=== PATIENT | female | born 1950 | race Caucasian/White ===

== ENCOUNTER → 2024-10-19 | Outpatient (REF) | payer MEDICARE, MEDICAID, SELFPAY ==
[2024-10-19 08:15] LABS: Absolute Lymphocyte Count 1.54 X10^3/uL (0.83-4.51); Absolute Neutrophil Count 3.2 X10^3/uL (2.0-7.7); Basophil# 0.05 X10^3/uL; Basophil% 0.9 % (0-1); Eosinophil# 0.11 X10^3/uL; Hematocrit 39.9 % (37-47); Hemoglobin 12.7 g/dL (12.0-15.0); Lymphocyte # 1.54 X10^3/ul (0.83-4.51); Lymphocyte % 28.4 % (19-41); Mean Corp Hgb Conc 31.8 g/dL (32-36); Mean Corpuscular Hgb 30.2 pg (27.0-32.0); Mean Platelet Vol. 11.7 fl (6.2-12.0); Monocyte# 0.51 X10^3/uL; Monocyte% 9.4 % (0-10); NRBC Flagged by Analyzer 0 % (0-5); Neutrophil % 59.1 % (47-70); Platelet Count 211 K/mm3 (150-450); RBC Distribution Width CV 13.7 % (11.6-14.6); RBC Distribution Width SD 48.3 fl (35.1-43.9); White Blood Count 5.4 K/mm3 (4.4-11.0)
[2024-10-19 08:28] LABS: Hemoglobin A1c 5.6 % (<=5.6)
[2024-10-19 08:54] LABS: Vitamin B12 313 pg/mL (180-914); Vitamin D,25 Hydroxy 30.3 ng/mL (30-100)
[2024-10-19 09:06] LABS: ALB/GLOB Ratio 1.4 RATIO (0.9-2.4); AST(SGOT) 17 U/L (<=31); Alanine Aminotransfer ALT/SGPT < 5 U/L (<=34); Albumin, Serum 4.2 g/dL (3.4-4.8); Alkaline Phosphatase 68 U/L (35-104); Anion Gap 10 (5-15); BUN 18 mg/dL (4-19); BUN/Creat Ratio 19.6 RATIO (10-20); Calcium,Total 9.1 mg/dL (7.6-11.0); Carbon Dioxide 26.2 mmol/L (21.0-32.0); Chloride 105 mmol/L (98-108); Creatinine, Serum 0.91 mg/dL (0.70-1.20); EST Glomerular Filtration Rate 66 (>60); Globulin 2.9 g/dL (2.2-4.2); Glucose 85 mg/dL (70-99); Potassium 4.4 mmol/L (3.3-5.1); Sodium Level 141 mmol/L (133-145); Total Bilirubin 0.35 mg/dL (0.00-1.30)
== END ==
LOC: OLS.SW 05:00
PROVIDERS: Visit Provider Internal Medicine
DX: E55.9 Vitamin D deficiency, unspecified (principal); G20.C Parkinsonism, unspecified; Z79.899 Other long term (current) drug therapy
CPT/HCPCS: 36415; 80053; 82306; 82607; 83036; 84443; 85025

== ENCOUNTER → 2024-11-08 | Outpatient (REF) | payer MEDICARE, MEDICAID, SELFPAY ==
--- OUTSIDE RECORDS SUMMARY | 2024-11-08 04:50 | XMS RPT_ITS | CCD ---
Author Organization 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 Phillips Attending Provider Saada Jacqueline Daugherty Attending Unavailable Problems Problem Classification Problem Date Documented Da te Episodic/Chronic Nutritional deficiencies (1 source) Vitamin D deficiency, unspecified; Translations: [Vitamin D deficiency, unspecified] Onset: 11-05-2024 Chronic Unclassified (1 source) Parkinsonism, unspecified; Translations: [Parkinsonism, unspecified] Onset: 11-05-2024 Results Test Name Value Interpretation Reference Range Facility Absolute lymphocyte countOrd ered By: Jacqueline Walsh on 10-19-2024 Lymphocytes Auto (Unsp spec) [#/Vol] 1.54 10*3/uL 0.83-4.51 [facility] Absolute neutrophil countOrd ered By: Jacqueline Walsh on 10-19-2024 Neutrophils (Bld) [#/Vol] 3.2 10*3/uL 2.0-7.7 [facility] Anion gap in Serum or Plasma Ordered By: Jacqueline Walsh on 10-19-2024 Anion gap [Moles/Vol] 10 mmol/L 5-15 [facility] Automated blood erythrocyte countOrdered By: Jacqueline Walsh on 10-19-2024 RBC (Bld) [#/Vol] 4.20 10*6/uL Normal 4.2-5.4 [facility] Comment on above: Order Comment: 308-2 Performed By: #### L 503.0106, L501.9520, L501.9985, L500.4050, L100.0100, L506.1001 #### [facility] [address] [place], [address] Automated blood hematocrit ( percentage)Ordered By: Jacqueline Walsh on 10-19-2024 Hematocrit (Bld) [Volume fraction] 39.9 % Normal 37-47 [facility] Comment on above: Order Comment: 308-2 Performed By: #### L 503.0106, L501.9520, L501.9985, L500.4050, L100.0100, L506.1001 #### [facility] [address] [place], [place], [id number] Automated lymphocyte count a s percentage of total leukocytesOrdered By: Jacqueline Walsh on 10-19-2024 Lymphocytes/100 WBC Auto (Unsp spec) 28.4 % 19- [facility] BUN/creatinine ratioOrdered By: Jacqueline Walsh on 10-19-2024 Urea nitrogen/Creatinine [Mass ratio] 19.6 mg/mg 10-20 [facility] Basophil percentageOrdered B y: Jacqueline Walsh on 10-19-2024 Basophils/100 WBC (Bld) 0.9 % Normal 0-1 [facility] Comment on above: Order Comment: 308-2 Performed By: #### L 503.0106, L501.9520, L501.9985, L500.4050, L100.0100, L506.1001 #### [facility] [address] [place], [place], [address] Bilirubin, totalOrdered By: Jacqueline Walsh on 10-19-2024 Bilirubin [Mass/Vol] 0.35 mg/dL Normal 0.00-1.30 [facility] Comment on above: Order Comment: 308-2 Performed By: #### L 503.0106, L501.9520, L501.9985, L500.4050, L100.0100, L506.1001 #### [facility] [address] [place], [place], [address] CBC W/Diff, Automatedon 09-24 Absolute Lymph 1.54 X10 3/uL Normal 0.83-4.51 [facility] Comment on above: Order Comment: 308-2 Performed By: #### L 503.0106, L501.9520, L501.9985, L500.4050, L100.0100, L506.1001 #### [facility] [address] [place], [address] Absolute Neut 3.2 X10 3/uL Normal 2.0-7.7 [facility] Comment on above: Order Comment: 308-2 Performed By: #### L 503.0106, L501.9520, L501.9985, L500.4050, L100.0100, L506.1001 #### [facility] [address] [place], [address] IG% 0.200 Normal 0.0-0.9 [facility] Comment on above: Order Comment: 308-2 Result Comment: IG% - Immature Granulocytes (promyelocytes, myelocytes and metamyelocytes) > 1% indicates that a LEFT SHIFT is Present. Performed By: #### L 503.0106, L501.9520, L501.9985, L500.4050, L100.0100, L506.1001 #### [facility] [address] [place], [address] Lymphocytes/100 WBC (Bld) 28.4 % Normal 19-41 [facility] Comment on above: Order Comment: 308-2 Performed By: #### L 503.0106, L501.9520, L501.9985, L500.4050, L100.0100, L506.1001 #### [facility] [address] [place], [address] Nucleated RBC (Bld) [#/Vol] 0 10*3/uL Normal 0-5 [facility] Comment on above: Order Comment: 308-2 Performed By: #### L 503.0106, L501.9520, L501.9985, L500.4050, L100.0100, L506.1001 #### [facility] [address] [place], [address] RDW SD 48.3 fl High 35.1-43.9 [facility] Comment on above: Order Comment: 308-2 Performed By: #### L 503.0106, L501.9520, L501.9985, L500.4050, L100.0100, L506.1001 #### [facility] [address] [place], [address] Carbon dioxide, total [Moles /volume] in Central venous bloodOrdered By: Jacqueline Walsh on 10-19-2024 CO2 [Moles/Vol] 26.2 mmol/L Normal 21.0-32.0 [facility] Comment on above: Order Comment: 308-2 Performed By: #### L 503.0106, L501.9520, L501.9985, L500.4050, L100.0100, L506.1001 #### [facility] [address] [place], [address] Chloride assayOrdered By: Warner Walsh on 10-19-2024 Chloride [Moles/Vol] 105 mmol/L Normal 98-108 [facility] Comment on above: Order Comment: 308-2 Performed By: #### L 503.0106, L501.9520, L501.9985, L500.4050, L100.0100, L506.1001 #### [facility] [address] [place], [address] Comprehensive Metabolic Prof ilon 10-19-2024 ALK PHOS 68 U/L Normal 35-104 [facility] Comment on above: Order Comment: 308-2 Performed By: #### L 503.0106, L501.9520, L501.9985, L500.4050, L100.0100, L506.1001 #### [facility] [address] [place], [address] BUN/CRE 19.6 RATIO Normal 10-20 [facility] Comment on above: Order Comment: 308-2 Performed By: #### L 503.0106, L501.9520, L501.9985, L500.4050, L100.0100, L506.1001 #### [facility] [address] [place], [address] GAP 10 Normal 5-15 [facility] Comment on above: Order Comment: 308-2 Performed By: #### L 503.0106, L501.9520, L501.9985, L500.4050, L100.0100, L506.1001 #### [facility] [address] [place], [address] Potassium [Moles/Vol] 4.4 mmol/L Normal 3.3-5.1 [facility] Comment on above: Order Comment: 308-2 Performed By: #### L 503.0106, L501.9520, L501.9985, L500.4050, L100.0100, L506.1001 #### [facility] [address] [place], [address] T PROT 7.0 g/dL Normal 5.9-8.4 [facility] Comment on above: Order Comment: 308-2 Performed By: #### L 503.0106, L501.9520, L501.9985, L500.4050, L100.0100, L506.1001 #### [facility] [address] [place], [address] Comprehensive Metabolic Prof ilOrdered By: Jacqueline Walsh on 10-19-2024 AST [Catalytic activity/Vol] 17 U/L Normal <=31 [facility] Comment on above: Order Comment: 308-2 Performed By: #### L 503.0106, L501.9520, L501.9985, L500.4050, L100.0100, L506.1001 #### [facility] [address] [place], [place], [address] Eosinophil percentageOrdered By: Jacqueline Walsh on 10-19-2024 Eosinophils/100 WBC (Bld) 2.0 % Normal 0-5 [facility] Comment on above: Order Comment: Performed By: #### L 503.0106, L501.9520, L501.9985, L500.4050, L100.0100, L506.1001 #### [facility] [address] [place], [address] Erythrocyte distribution wid th ratioOrdered By: Jacqueline Walsh on 10-19-2024 Erythrocyte distribution width (RBC) [Ratio] 13.7 % Normal 11.6-14.6 [facility] Comment on above: Order Comment: Performed By: #### L 503.0106, L501.9520, L501.9985, L500.4050, L100.0100, L506.1001 #### [facility] [address] [place], [place], [address] Erythrocyte distribution wid th standard deviationOrdered By: Jacqueline Walsh on 10-19-2024 Erythrocyte distribution width (RBC) [Ratio] 48.3 fl High 35.1-43.9 [facility] Glomerular filtration rate ( GFR) estimation/1.73 sq m using serum, plasma, or whole bOrdered By: Jacqueline Walsh on 10-19-2024 GFR/1.73 sq M.predicted among non-blacks MDRD (S/P/Bld) [Vol rate/Area] 66 mL/min/{1.73_m2} Normal >60 [facility] Comment on above: mL/min/1.73m2 CKD-EP I Creatinine Equation (2020) Order Comment: Result Comment: mL/m in/1.73m2 CKD-EPI Creatinine Equation (2020) Performed By: #### L 503.0106, L501.9520, L501.9985, L500.4050, L100.0100, L506.1001 #### [facility] [address] [place], [place], [address] Hemoglobin A1c percentageOrd ered By: Jacqueline Walsh on 10-19-2024 HbA1c (Bld) [Mass fraction] 5.6 % Normal <=5.6 [facility] Comment on above: Normal < 5.7 % Predi abetic 5.7 - 6.4 % Diabetic >or= 6.5 % Please note range changes. Order Comment: 308-2 Result Comment: Norm al < 5.7 % Prediabetic 5.7 - 6.4 % Diabetic >or= 6.5 % Please note range changes. Performed By: #### L 503.0106, L501.9520, L501.9985, L500.4050, L100.0100, L506.1001 #### [facility] [address] [place], [address] Hemoglobin measurementOrdere d By: Jacqueline Walsh on 10-19-2024 Hemoglobin (Bld) [Mass/Vol] 12.7 g/dL Normal 12.0-15.0 [facility] Comment on above: Order Comment: 308-2 Performed By: #### L 503.0106, L501.9520, L501.9985, L500.4050, L100.0100, L506.1001 #### [facility] [address] [place], [address] Immature granulocytes/100 WB C Auto (Bld)Ordered By: Jacqueline Walsh on 10-19-2024 Immature granulocytes/100 WBC (Bld) 0.200 % 0.0-0.9 [facility] Comment on above: IG% - Immature Granu locytes (promyelocytes, myelocytes and metamyelocytes) > 1% indicates that a LEFT SHIFT is Present. MCV (mean corpuscular volume ) determinationOrdered By: Jacqueline Walsh on 10-19-2024 MCV (RBC) [Entitic vol] 95.0 fL Normal 81-99 [facility] Comment on above: Order Comment: 308-2 Performed By: #### L 503.0106, L501.9520, L501.9985, L500.4050, L100.0100, L506.1001 #### [facility] [address] [place], [place], [address] Mean corpuscular hemoglobin (MCH) determinationOrdered By: Jacqueline Walsh on 10-19-2024 MCH (RBC) [Entitic mass] 30.2 pg Normal 27.0-32.0 [facility] Comment on above: Order Comment: 308-2 Performed By: #### L 503.0106, L501.9520, L501.9985, L500.4050, L100.0100, L506.1001 #### [facility] [address] [place], [place], [address] Mean corpuscular hemoglobin concentration (MCHC) determinationOrdered By: Jacqueline Walsh on 10-19-2024 MCHC (RBC) [Mass/Vol] 31.8 g/dL Low 32-36 [facility] Comment on above: Order Comment: 308-2 Performed By: #### L 503.0106, L501.9520, L501.9985, L500.4050, L100.0100, L506.1001 #### [facility] [address] [place], [place], [address] Mean platelet volume determi nationOrdered By: Jacqueline Walsh on 10-19-2024 Platelet mean volume (Bld) [Entitic vol] 11.7 fL Normal 6.2-12.0 [facility] Comment on above: Order Comment: 308-2 Performed By: #### L 503.0106, L501.9520, L501.9985, L500.4050, L100.0100, L506.1001 #### [facility] [address] [place], [place], [address] Monocyte percentageOrdered B y: Jacqueline Walsh on 10-19-2024 Monocytes/100 WBC (Bld) 9.4 % Normal 0-10 [facility] Comment on above: Order Comment: 308-2 Performed By: #### L 503.0106, L501.9520, L501.9985, L500.4050, L100.0100, L506.1001 #### [facility] [address] [place], [address] Neutrophil percentageOrdered By: Jacqueline Walsh on 10-19-2024 Neutrophils/100 WBC (Bld) 59.1 % Normal 47-70 [facility] Comment on above: Order Comment: 308-2 Performed By: #### L 503.0106, L501.9520, L501.9985, L500.4050, L100.0100, L506.1001 #### [facility] [address] [place], [address] Nucleated red blood cell per centageOrdered By: Jacqueline Walsh on 10-19-2024 Nucleated RBC/100 WBC (Bld) [Ratio] 0 % 0-5 [facility] Platelet countOrdered By: Warner Walsh on 10-19-2024 Platelets (Bld) [#/Vol] 211 10*3/uL Normal 150-450 [facility] Comment on above: Order Comment: 308-2 Performed By: #### L 503.0106, L501.9520, L501.9985, L500.4050, L100.0100, L506.1001 #### [facility] [address] [place], [place], [address] Potassium measurement (mass/ volume)Ordered By: Jacqueline Walsh on 10-19-2024 Potassium (Unsp spec) [Mass/Vol] 4.4 mmol/L 3.3-5.1 [facility] Serum creatinine measurement (mass/volume)Ordered By: Jacqueline Walsh on 10-19-2024 Creatinine [Mass/Vol] 0.91 mg/dL Normal 0.70-1.20 [facility] Comment on above: Order Comment: 308-2 Performed By: #### L 503.0106, L501.9520, L501.9985, L500.4050, L100.0100, L506.1001 #### [facility] [address] [place], [address] Serum globulin measurementOr dered By: Jacqueline Walsh on 10-19-2024 Globulin (S) [Mass/Vol] 2.9 g/dL Normal 2.2-4.2 [facility] Comment on above: Order Comment: 308-2 Performed By: #### L 503.0106, L501.9520, L501.9985, L500.4050, L100.0100, L506.1001 #### [facility] [address] [place], [address] Serum glucose measurement (m ass/volume)Ordered By: Jacqueline Walsh on 10-19-2024 Glucose [Mass/Vol] 85 mg/dL Normal 70-99 [facility] Comment on above: Order Comment: 308-2 Performed By: #### L 503.0106, L501.9520, L501.9985, L500.4050, L100.0100, L506.1001 #### [facility] [address] [place], [address] Serum or plasma alanine hall otransferase (ALT) measurementOrdered By: Jacqueline Walsh on 10-19-2024 ALT [Catalytic activity/Vol] U/L Normal <=34 [facility] Comment on above: Order Comment: 308-2 Performed By: #### L 503.0106, L501.9520, L501.9985, L500.4050, L100.0100, L506.1001 #### [facility] [address] [place], [address] Serum or plasma albumin rex urement (mass/volume)Ordered By: Jacqueline Walsh on 10-19-2024 Albumin [Mass/Vol] 4.2 g/dL Normal 3.4-4.8 [facility] Comment on above: Order Comment: 308-2 Performed By: #### L 503.0106, L501.9520, L501.9985, L500.4050, L100.0100, L506.1001 #### [facility] [address] [place], [address] Serum or plasma albumin/glob ulin mass ratioOrdered By: Jacqueline Walsh on 10-19-2024 Albumin/Globulin [Mass ratio] 1.4 {ratio} Normal 0.9-2.4 [facility] Comment on above: Order Comment: 308-2 Performed By: #### L 503.0106, L501.9520, L501.9985, L500.4050, L100.0100, L506.1001 #### [facility] [address] [place], [address] Serum or plasma alkaline carisa sphatase measurementOrdered By: Jacqueline Walsh on 10-19-2024 ALP [Catalytic activity/Vol] 68 U/L 35-104 [facility] Serum or plasma calcium rex urement (mass/volume)Ordered By: Jacqueline Walsh on 10-19-2024 Calcium [Mass/Vol] 9.1 mg/dL Normal 7.6-11.0 [facility] Comment on above: Order Comment: 308-2 Performed By: #### L 503.0106, L501.9520, L501.9985, L500.4050, L100.0100, L506.1001 #### [facility] [address] [place], [address] Serum or plasma urea nitroge n measurement (mass/volume)Ordered By: Jacqueline Walsh on 10-19-2024 Urea nitrogen [Mass/Vol] 18 mg/dL Normal 4-19 [facility] Comment on above: Order Comment: 308-2 Performed By: #### L 503.0106, L501.9520, L501.9985, L500.4050, L100.0100, L506.1001 #### [facility] [address] [place], [place], [id number] Sodium levelOrdered By: Esperanza Walsh on 10-19-2024 Sodium [Moles/Vol] 141 mmol/L Normal 133-145 [facility] Comment on above: Order Comment: 308-2 Performed By: #### L 503.0106, L501.9520, L501.9985, L500.4050, L100.0100, L506.1001 #### [facility] [address] [place], [place], [id number] TSH DL <= 0.005 mIU/L QnOrde red By: Jacqueline Walsh on 10-19-2024 TSH Qn 2.790 uIU/mL 0.300-4.200 [facility] Thyroid Stim Hormone (TSH)on 10-19-2024 TSH 2.790 uIU/mL Normal 0.300-4.200 [facility] Comment on above: Order Comment: 308-2 Performed By: #### L 503.0106, L501.9520, L501.9985, L500.4050, L100.0100, L506.1001 #### [facility] [address] [place], [place], [id number] Total proteinOrdered By: Herber Walsh on 10-19-2024 Protein [Mass/Vol] 7.0 g/dL 5.9-8.4 [facility] Vitamin B12 ser/plasOrdered By: Jacqueline Walsh on 10-19-2024 Cobalamin (Vitamin B12) [Mass/Vol] 313 pg/mL Normal 180-914 [facility] Comment on above: Order Comment: 308-2 Performed By: #### L 503.0106, L501.9520, L501.9985, L500.4050, L100.0100, L506.1001 #### [facility] [address] [place], [place], [address] Vitamin D,25 Hydroxyon 10-19 Vitamin D 25-OH 30.3 ng/mL Normal 30-100 [facility] Comment on above: Order Comment: 308-2 Result Comment: Margy min D Status Deficiency: <20 ng/mL (50nmol/L) Insufficiency: 20-30 ng/mL (50-75 nmol/L) Sufficiency: 30-100 ng/mL (75-250 nmol/L) Toxicity: >100 ng/mL (>250 nmol/L) Performed By: #### L 503.0106, L501.9520, L501.9985, L500.4050, L100.0100, L506.1001 #### [facility] [address] [place], [place], [id number] White blood cell (WBC) count Ordered By: Jacqueline Walsh on 10-19-2024 WBC (Bld) [#/Vol] 5.4 10*3/uL Normal 4.4-11.0 [facility] Comment on above: Order Comment: 308-2 Performed By: #### L 503.0106, L501.9520, L501.9985, L500.4050, L100.0100, L506.1001 #### [facility] [address] [place], [place], [id number] MRI Spine Lumbar w/o Contras ton 12-07-2018 MRI Spine Lumbar w/o Contrast Patient Name: DANAY GARCIA MRI Exam Date/Time 12/07/2018 08:16:25 EDT Exam MRI Spine Lumbar w/o Contrast Ordering Physician MAE DICKINSON Accession Number [id number] CPT4 Codes 31509 () Reason For Exam lumbar stenosis Report MRI LUMBAR SPINE CLINICAL: Lumbar stenosis COMPARISON: None provided Sagittal and axial multisequence MR imaging of the lumbar spine was performed. FINDINGS: There is no abnormal marrow edema to suggest acute lumbar osseous injury. The lumbar spine vertebral body heights are maintained. Mild endplate degenerative spurring and endplate degenerative marrow signal changes are present. Multilevel facet degenerative changes. There is mild anterolisthesis of L5 upon S1 of approximately 4 mm. Multilevel disc bulging changes are present and there is multilevel disc space desiccation. The conus terminates at the L1-L2 level. 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 T12-L1 shows mild disc bulging and facet degenerative changes. No significant canal or foraminal stenosis.. L1-L2 with mild posterior disc bulging and facet degenerative changes. No significant canal or foraminal stenosis. L2-L3 shows disc bulging and facet and ligamentous degenerative change. There is moderate canal narrowing. The foramina show mild narrowing. L3-L4 shows diffuse disc bulging and facet and ligamentous degenerative change. There is moderately severe narrowing of the canal. The foramina show moderate left and mild right narrowing L4-L5 shows severe canal stenosis due to diffuse disc bulging and facet and ligamentous degenerative change. The foramina show mild right and moderate left narrowing. L5-S1 shows the mild anterolisthesis, disc bulging and facet and ligamentous degenerative changes. No significant central canal stenosis. The foramina are mildly narrowed. IMPRESSION: Mild multilevel lumbar spondylosis. There is severe canal stenosis present at the L4-L5 level. Moderate foraminal narrowing on the left at L3-L4 and L4-L5. Please see the above level by level detailed description of findings. Report Dictated on Final Dictated: 12/07/2018 8:50 am Dictating Physician: MD OMALLEY BRIAN Signed Date and Time: 12/07/2018 9:05 am Signed by: MD OMALLEY BRIAN Transcribed Date and Time: 12/07/2018 8:50 Normal [facility] Encounters Encounter Date Encounter Type Care Provider Facility Start: 10-19-2024 End: 10-19-[address] Jacqueline Walsh MD [facility] [employer] Work Phone: Start: 10-19-2024 End: 10-19-[address] Jacqueline Walsh MD -[facility] Start: 10-19-2024 End: 10-19-2024 ambulatory Jacqueline PEOPLES Facility:[facility] Procedures Date Procedure Procedure Detail Performing Clinician Start: 10-19-2024 Vitamin D, 25-hydrox y measurement Dr. Jacqueline Waslh MD Comment on above: Vitamin D StatusDefi ciency: <20 ng/mL (50nmol/L)Insufficiency: 20-30 ng/mL (50-75 nmol/L)Sufficiency: 30-100 ng/mL (75-250 nmol/L)Toxicity: >100 ng/mL (>250 nmol/L) Payers Date Payer Category Payer Medicaid [id number] 2024 Medicare [id number] 2024 Self-pay Unknown [id number] Social History Date Type Detail Facility Tobacco smoking stat [facility] Unknown if ever smoked [facility] Work Phone: Start: 1950 Sex Assigned At Female [facility] Evaluation note Note Date & Type Note Facility Evaluation note No assessment information availa ble [facility] Work Phone: Reason for referral (narrative) Note Date & Type Note Facility Reason for referral (narrative) No reason for referral information available [facility] Work Phone: Summary Purpose Family History No Family History Records FoundNo Family History Records Found Advance Directives No Advanced Directives Records FoundNo Advanced Directives Records Found Chief Complaint and Reason for Visit Chief Complaint Admit Date LABWORK October 19, 2024 5:00a m Additional Source Comments INFORMATION SOURCE (unrecogn ized section and content) DATE CREATED AUTHOR 12/15/2018 [facility] DATE CREATED AUTHOR AUTHOR'S ORGANIZ ATION 11/08/2024 [facility] Care Teams (unrecognized sec tion and content) Team Status: Inactive Member Role Status Dates Dr. Jacqueline PEOPLES MD Attending Provider Active Start: October 19, 2024 End: October 19, 2024 Goals (unrecognized section and content) Goals may be documented in a n alternate section FOR RECORDS PERTAINING TO PATIENTS WHO ARE OR HAVE BEEN ENROLLED IN A CHEMICAL DEPENDENCY/SUBSTANCEABUSE PROGRAM, SOME INFORMATION MAY BE OMITTED. This clinical summary was aggregated from multiple sources. Caution should be exercised in using it in the provision of clinical care. This summary normalizes information from multiple sources, and as a consequence, information in this document may materially change the coding, format and clinical context of patient data. In addition, data may be omitted in some cases. CLINICAL DECISIONS SHOULD BE BASED ON THE PRIMARY CLINICAL RECORDS. [facility]. provides no warranty or guarantee of the accuracy or completeness of information in this document.
[2024-11-08 09:32] LABS: Absolute Neutrophil Count 3.3 X10^3/uL (2.0-7.7); Basophil# 0.03 X10^3/uL; Basophil% 0.6 % (0-1); Eosinophil# 0.13 X10^3/uL; Eosinophils% 2.4 % (0-5); Hematocrit 40.2 % (37-47); Lymphocyte % 26.4 % (19-41); Mean Corp Hgb Conc 32.3 g/dL (32-36); Mean Corpuscular Hgb 30.4 pg (27.0-32.0); Mean Corpuscular Volume 93.9 fL (81-99); Mean Platelet Vol. 11.5 fl (6.2-12.0); Monocyte# 0.48 X10^3/uL; NRBC Flagged by Analyzer 0 % (0-5); Neutrophil # 3.26 X10^3/uL (2.7-7.7); Neutrophil % 61.4 % (47-70); Platelet Count 236 K/mm3 (150-450); RBC Distribution Width CV 13.4 % (11.6-14.6); Red Blood Count 4.28 M/mm3 (4.2-5.4); White Blood Count 5.3 K/mm3 (4.4-11.0)
[2024-11-08 10:05] LABS: Anion Gap 10 (5-15); BUN 18 mg/dL (4-19); BUN/Creat Ratio 20.3 RATIO (10-20); Calcium,Total 9.2 mg/dL (7.6-11.0); Carbon Dioxide 25.4 mmol/L (21.0-32.0); Chloride 104 mmol/L (98-108); Creatinine, Serum 0.89 mg/dL (0.70-1.20); EST Glomerular Filtration Rate 68 (>60); Glucose 83 mg/dL (70-99); Potassium 4.7 mmol/L (3.3-5.1); Sodium Level 139 mmol/L (133-145); Vitamin D,25 Hydroxy 26.4 ng/mL (30-100)
== END ==
LOC: OLS.SW 05:00
PROVIDERS: Visit Provider Internal Medicine
DX: R41.82 Altered mental status, unspecified (principal)
CPT/HCPCS: 36415; 80048; 82306; 85025

== ENCOUNTER → 2024-12-22 | Outpatient (REF) | payer MEDICARE, MEDICAID, SELFPAY ==
[2024-12-22 07:42] LABS: Hematocrit 36.7 % (37-47); Hemoglobin 12.2 g/dL (12.0-15.0); Mean Corp Hgb Conc 33.2 g/dL (32-36); Mean Corpuscular Volume 93.1 fL (81-99); Mean Platelet Vol. 11.3 fl (6.2-12.0); Platelet Count 176 K/mm3 (150-450); RBC Distribution Width CV 13.5 % (11.6-14.6); RBC Distribution Width SD 46.3 fl (35.1-43.9); Red Blood Count 3.94 M/mm3 (4.2-5.4); White Blood Count 4.8 K/mm3 (4.4-11.0)
[2024-12-22 08:01] LABS: Anion Gap 11 (5-15); BUN 16 mg/dL (4-19); BUN/Creat Ratio 16.5 RATIO (10-20); Calcium,Total 8.8 mg/dL (7.6-11.0); Carbon Dioxide 23.6 mmol/L (21.0-32.0); Chloride 104 mmol/L (98-108); Glucose 92 mg/dL (70-99); Potassium 4.4 mmol/L (3.3-5.1)
== END ==
LOC: OLS.SWAL 05:00
PROVIDERS: Visit Provider Internal Medicine
DX: Z00.00 Encounter for general adult medical examination without abnormal findings (principal)
CPT/HCPCS: 36415; 80048; 85027

== ENCOUNTER → 2025-02-08 | Outpatient (REF) | payer MEDICARE, MEDICAID, SELFPAY ==
[2025-02-08 08:21] LABS: Vitamin D,25 Hydroxy 37.4 ng/mL (30-100)
== END ==
LOC: OLS.SWAL 05:00
PROVIDERS: Visit Provider Internal Medicine
DX: E55.9 Vitamin D deficiency, unspecified (principal)
CPT/HCPCS: 36415; 82306

== ENCOUNTER → 2025-05-02 | Outpatient (REF) | payer MEDICARE, MEDICAID, SELFPAY ==
--- OUTSIDE RECORDS SUMMARY | 2025-05-02 03:23 | XMS RPT_ITS | CCD ---
Author Organization [facility] Care Team Providers Care Winch Operator Name Role Phone Jillian DORMAN, Dr. Phillips Attending Provider Unavaila ble Gudla OLS, Jacqueline Attending Unavailable Gudla OLS, Jacqueline Attending Unavailable Gudla OLS, Jacqueline Attending Unavailable Orlina OLS, Jacqueline Attending Unavailable Problems Problem Classification Problem Date Documented Da te Episodic/Chronic Nutritional deficiencies (1 source) Vitamin D deficiency, unspecified; Translations: [Vitamin D deficiency, unspecified] Onset: 03-25-2025 Chronic Residual codes; unclassified (1 source) Altered mental status, unspecified; Translations: [Altered mental status, unspecified] Onset: 02-25-2025 Episodic Unclassified (1 source) Parkinsonism, unspecified; Translations: [Parkinsonism, unspecified] Onset: 11-05-2024 Results Test Name Value Interpretation Reference Range Facility Vitamin D,25 Hydroxyon 02-08 Vitamin D 25-OH 37.4 ng/mL Normal 30-100 [facility] Comment on above: Order Comment: 153 Result Comment: Margy min D Status Deficiency: <20 ng/mL (50nmol/L) Insufficiency: 20-30 ng/mL (50-75 nmol/L) Sufficiency: 30-100 ng/mL (75-250 nmol/L) Toxicity: >100 ng/mL (>250 nmol/L) Performed By: #### L 500.2500, L100.0500 #### [facility] [address] [place], [address] Anion gap in Serum or Plasma Ordered By: Jacqueline Walsh on 12-22-2024 Anion gap [Moles/Vol] 11 mmol/L 5-15 [facility] BUN/creatinine ratioOrdered By: Jacquleine Walsh on 12-22-2024 Urea nitrogen/Creatinine [Mass ratio] 16.5 mg/mg 10-20 [facility] Basic Metabolic Profile (BMP )on 12-22-2024 BUN/CRE 16.5 RATIO Normal -20 [facility] Comment on above: Order Comment: 153 Performed By: #### L 500.2500, L100.0500 #### [facility] [address] [place], [address] Calcium [Mass/Vol] 8.8 mg/dL Normal 7.6-11.0 [facility] Comment on above: Order Comment: 153 Performed By: #### L 500.2500, L100.0500 #### [facility] [address] [place], [address] Chloride [Moles/Vol] 104 mmol/L Normal 98-108 [facility] Comment on above: Order Comment: 153 Performed By: #### L 500.2500, L100.0500 #### [facility] [address] [place], [address] CO2 [Moles/Vol] 23.6 mmol/L Normal 21.0-32.0 [facility] Comment on above: Order Comment: 153 Performed By: #### L 500.2500, L100.0500 #### [facility] [address] [place], [address] Creatinine [Mass/Vol] 0.98 mg/dL Normal 0.70-1.20 [facility] Comment on above: Order Comment: 153 Performed By: #### L 500.2500, L100.0500 #### [facility] [address] [place], [address] GAP 11 Normal 5-15 [facility] Comment on above: Order Comment: 153 Performed By: #### L 500.2500, L100.0500 #### [facility] [address] [place], [address] GFR/1.73 sq M.predicted among non-blacks MDRD (S/P/Bld) [Vol rate/Area] 60 mL/min/{1.73_m2} Normal >60 [facility] Comment on above: Order Comment: 153 Result Comment: mL/m in/1.73m2 CKD-EPI Creatinine Equation (2020) Performed By: #### L 500.2500, L100.0500 #### [facility] [address] [place], [address] Glucose [Mass/Vol] 92 mg/dL Normal 70-99 [facility] Comment on above: Order Comment: 153 Performed By: #### L 500.2500, L100.0500 #### [facility] [address] [place], [address] Potassium [Moles/Vol] 4.4 mmol/L Normal 3.3-5.1 [facility] Comment on above: Order Comment: 153 Performed By: #### L 500.2500, L100.0500 #### [facility] [address] [place], [address] Sodium [Moles/Vol] 139 mmol/L Normal 133-145 [facility] Comment on above: Order Comment: 153 Performed By: #### L 500.2500, L100.0500 #### [facility] [address] [place], [address] Urea nitrogen [Mass/Vol] 16 mg/dL Normal 4-19 [facility] Comment on above: Order Comment: 153 Performed By: #### L 500.2500, L100.0500 #### [facility] [address] [place], [address] CBC-Complete Blood Cnt No Di ffon 12-22-2024 Erythrocyte distribution width (RBC) [Ratio] 13.5 % Normal 11.6-14.6 [facility] Comment on above: Order Comment: 153 Performed By: #### L 500.2500, L100.0500 #### [facility] [address] [place], [address] Hematocrit (Bld) [Volume fraction] 36.7 % Low 37-47 [facility] Comment on above: Order Comment: 153 Performed By: #### L 500.2500, L100.0500 #### [facility] [address] [place], [address] Hemoglobin (Bld) [Mass/Vol] 12.2 g/dL Normal 12.0-15.0 [facility] Comment on above: Order Comment: 153 Performed By: #### L 500.2500, L100.0500 #### [facility] [address] [place], [address] MCH (RBC) [Entitic mass] 31.0 pg Normal 27.0-32.0 [facility] Comment on above: Order Comment: 153 Performed By: #### L 500.2500, L100.0500 #### [facility] [address] [place], [address] MCHC (RBC) [Mass/Vol] 33.2 g/dL Normal 32-36 [facility] Comment on above: Order Comment: 153 Performed By: #### L 500.2500, L100.0500 #### [facility] [address] [place], [address] MCV (RBC) [Entitic vol] 93.1 fL Normal 81-99 [facility] Comment on above: Order Comment: 153 Performed By: #### L 500.2500, L100.0500 #### [facility] [address] [place], [address] Platelet mean volume (Bld) [Entitic vol] 11.3 fL Normal 6.2-12.0 [facility] Comment on above: Order Comment: 153 Performed By: #### L 500.2500, L100.0500 #### [facility] [address] [place], [address] Platelets (Bld) [#/Vol] 176 10*3/uL Normal 150-450 [facility] Comment on above: Order Comment: 153 Performed By: #### L 500.2500, L100.0500 #### [facility] [address] [place], [address] RBC (Bld) [#/Vol] 3.94 10*6/uL Low 4.2-5.4 [facility] Comment on above: Order Comment: 153 Performed By: #### L 500.2500, L100.0500 #### [facility] [address] [place], [address] RDW SD 46.3 fl High 35.1-43.9 [facility] Comment on above: Order Comment: 153 Performed By: #### L 500.2500, L100.0500 #### [facility] [address] [place], [address] WBC (Bld) [#/Vol] 4.8 10*3/uL Normal 4.4-11.0 [facility] Comment on above: Order Comment: 153 Performed By: #### L 500.2500, L100.0500 #### [facility] [address] [place], [address] Carbon dioxide, total [Moles /volume] in Central venous bloodOrdered By: Jacqueline Walsh on 12-22-2024 CO2 [Moles/Vol] 23.6 mmol/L 21.0-32.0 [facility] Chloride assayOrdered By: Warner Walsh on 12-22-2024 Chloride [Moles/Vol] 104 mmol/L 98-108 [facility] Erythrocyte distribution wid th ratioOrdered By: Jacqueline Walsh on 12-22-2024 Erythrocyte distribution width (RBC) [Ratio] 13.5 % 11.6-14.6 [facility] Erythrocyte distribution wid th standard deviationOrdered By: Jacquelnie Walsh on 12-22-2024 Erythrocyte distribution width (RBC) [Ratio] 46.3 fl High 35.1-43.9 [facility] Glomerular filtration rate ( GFR) estimation/1.73 sq m using serum, plasma, or whole bOrdered By: Jacqueline Walsh on 12-22-2024 GFR/1.73 sq M.predicted among non-blacks MDRD (S/P/Bld) [Vol rate/Area] 60 mL/min/{1.73_m2} >60 [facility] Comment on above: mL/min/1.73m2 CKD-EP I Creatinine Equation (2020) Hematocrit Auto (Bld) [Volum e fraction]Ordered By: Jacqueline Walsh on 12-22-2024 Hematocrit (Bld) [Volume fraction] 36.7 % Low 37-47 [facility] Hemoglobin measurementOrdere d By: Jacqueline Walsh on 12-22-2024 Hemoglobin (Bld) [Mass/Vol] 12.2 g/dL 12.0-15.0 [facility] MCV (mean corpuscular volume ) determinationOrdered By: Jacqueline Walsh on 12-22-2024 MCV (RBC) [Entitic vol] 93.1 fL 81-99 [facility] Mean corpuscular hemoglobin (MCH) determinationOrdered By: Jacqueline Walsh on 12-22-2024 MCH (RBC) [Entitic mass] 31.0 pg 27.0-32.0 [facility] Mean corpuscular hemoglobin concentration (MCHC) determinationOrdered By: Jacqueline Walsh on 12-22-2024 MCHC (RBC) [Mass/Vol] 33.2 g/dL 32-36 [facility] Mean platelet volume determi nationOrdered By: Jacqueline Walsh on 12-22-2024 Platelet mean volume (Bld) [Entitic vol] 11.3 fL 6.2-12.0 [facility] Platelet countOrdered By: Warner Walsh on 12-22-2024 Platelets (Bld) [#/Vol] 176 10*3/uL 150-450 [facility] Potassium measurement (mass/ volume)Ordered By: Jacqueline Walsh on 12-22-2024 Potassium (Unsp spec) [Mass/Vol] 4.4 mmol/L 3.3-5.1 [facility] RBC Auto (Bld) [#/Vol]Ordere d By: Jacqueline Walsh on 12-22-2024 RBC (Bld) [#/Vol] 3.94 10*6/uL Low 4.2-5.4 [facility] Serum creatinine measurement (mass/volume)Ordered By: Jacqueline Walsh on 12-22-2024 Creatinine [Mass/Vol] 0.98 mg/dL 0.70-1.20 [facility] Serum glucose measurement (m ass/volume)Ordered By: Jacqueline Walsh on 12-22-2024 Glucose [Mass/Vol] 92 mg/dL 70-99 [facility] Serum or plasma calcium rex urement (mass/volume)Ordered By: Jacqueline Walsh on 12-22-2024 Calcium [Mass/Vol] 8.8 mg/dL 7.6-11.0 [facility] Serum or plasma urea nitroge n measurement (mass/volume)Ordered By: Jacqueline Walsh on 12-22-2024 Urea nitrogen [Mass/Vol] 16 mg/dL 4-19 [facility] Sodium levelOrdered By: Esperanza Walsh on 12-22-2024 Sodium [Moles/Vol] 139 mmol/L 133-145 [facility] White blood cell (WBC) count Ordered By: Jacqueline Walsh on 12-22-2024 WBC (Bld) [#/Vol] 4.8 10*3/uL 4.4-11.0 [facility] Absolute lymphocyte countOrd ered By: Jacqueline Walsh on 11-08-2024 Lymphocytes Auto (Unsp spec) [#/Vol] 1.40 10*3/uL 0.83-4.51 [facility] Absolute neutrophil countOrd ered By: Jacqueline Walsh on 11-08-2024 Neutrophils (Bld) [#/Vol] 3.3 10*3/uL 2.0-7.7 [facility] Anion gap in Serum or Plasma Ordered By: Jacqueline Walsh on 11-08-2024 Anion gap [Moles/Vol] 10 mmol/L 5-15 [facility] Automated lymphocyte count a s percentage of total leukocytesOrdered By: Jacqueline Walsh on 11-08-2024 Lymphocytes/100 WBC Auto (Unsp spec) 26.4 % 19-41 [facility] BUN/creatinine ratioOrdered By: Jacqueline Walsh on 11-08-2024 Urea nitrogen/Creatinine [Mass ratio] 20.3 mg/mg High 10- [facility] Basic Metabolic Profile (BMP )on 11-08-2024 BUN/CRE 20.3 RATIO High 10- [facility] Comment on above: Order Comment: 308.2 Performed By: #### L 506.1001, L500.2500, L100.0100 #### [facility] [address] [place], [address] Calcium [Mass/Vol] 9.2 mg/dL Normal 7.6-11.0 [facility] Comment on above: Order Comment: 308.2 Performed By: #### L 506.1001, L500.2500, L100.0100 #### [facility] [address] [place], [address] Chloride [Moles/Vol] 104 mmol/L Normal 98-108 [facility] Comment on above: Order Comment: 308.2 Performed By: #### L 506.1001, L500.2500, L100.0100 #### [facility] [address] [place], [address] CO2 [Moles/Vol] 25.4 mmol/L Normal 21.0-32.0 [facility] Comment on above: Order Comment: 308.2 Performed By: #### L 506.1001, L500.2500, L100.0100 #### [facility] [address] [place], [address] Creatinine [Mass/Vol] 0.89 mg/dL Normal 0.70-1.20 [facility] Comment on above: Order Comment: 308.2 Performed By: #### L 506.1001, L500.2500, L100.0100 #### [facility] [address] [place], [address] GAP 10 Normal 5-15 [facility] Comment on above: Order Comment: 308.2 Performed By: #### L 506.1001, L500.2500, L100.0100 #### [facility] [address] [place], [address] GFR/1.73 sq M.predicted among non-blacks MDRD (S/P/Bld) [Vol rate/Area] 68 mL/min/{1.73_m2} Normal >60 [facility] Comment on above: Order Comment: 308.2 Result Comment: mL/m in/1.73m2 CKD-EPI Creatinine Equation (2020) Performed By: #### L 506.1001, L500.2500, L100.0100 #### [facility] [address] [place], [address] Glucose [Mass/Vol] 83 mg/dL Normal 70-99 [facility] Comment on above: Order Comment: 308.2 Performed By: #### L 506.1001, L500.2500, L100.0100 #### [facility] [address] [place], [address] Potassium [Moles/Vol] 4.7 mmol/L Normal 3.3-5.1 [facility] Comment on above: Order Comment: 308.2 Performed By: #### L 506.1001, L500.2500, L100.0100 #### [facility] [address] [place], [address] Sodium [Moles/Vol] 139 mmol/L Normal 133-145 [facility] Comment on above: Order Comment: 308.2 Performed By: #### L 506.1001, L500.2500, L100.0100 #### [facility] [address] [place], [address] Urea nitrogen [Mass/Vol] 18 mg/dL Normal 4-19 [facility] Comment on above: Order Comment: 308.2 Performed By: #### L 506.1001, L500.2500, L100.0100 #### [facility] [address] [place], [address] Basophil percentageOrdered B y: Jacqueline Walsh on 11-08-2024 Basophils/100 WBC (Bld) 0.6 % 0-1 [facility] CBC W/Diff, Automatedon 10-24 Absolute Lymph 1.40 X10 3/uL Normal 0.83-4.51 [facility] Comment on above: Order Comment: 308.2 Performed By: #### L 506.1001, L500.2500, L100.0100 #### [facility] [address] [place], [address] Absolute Neut 3.3 X10 3/uL Normal 2.0-7.7 [facility] Comment on above: Order Comment: 308.2 Performed By: #### L 506.1001, L500.2500, L100.0100 #### [facility] [address] [place], [address] Basophils/100 WBC (Bld) 0.6 % Normal 0-1 [facility] Comment on above: Order Comment: 308.2 Performed By: #### L 506.1001, L500.2500, L100.0100 #### [facility] [address] [place], [address] Eosinophils/100 WBC (Bld) 2.4 % Normal 0-5 [facility] Comment on above: Order Comment: 308.2 Performed By: #### L 506.1001, L500.2500, L100.0100 #### [facility] [address] [place], [address] Erythrocyte distribution width (RBC) [Ratio] 13.4 % Normal 11.6-14.6 [facility] Comment on above: Order Comment: 308.2 Performed By: #### L 506.1001, L500.2500, L100.0100 #### [facility] [address] [place], [address] Hematocrit (Bld) [Volume fraction] 40.2 % Normal 37-47 [facility] Comment on above: Order Comment: 308.2 Performed By: #### L 506.1001, L500.2500, L100.0100 #### [facility] [address] [place], [address] Hemoglobin (Bld) [Mass/Vol] 13.0 g/dL Normal 12.0-15.0 [facility] Comment on above: Order Comment: 308.2 Performed By: #### L 506.1001, L500.2500, L100.0100 #### [facility] [address] [place], [address] IG% 0.200 Normal 0.0-0.9 [facility] Comment on above: Order Comment: 308.2 Result Comment: IG% - Immature Granulocytes (promyelocytes, myelocytes and metamyelocytes) > 1% indicates that a LEFT SHIFT is Present. Performed By: #### L 506.1001, L500.2500, L100.0100 #### [facility] [address] [place], [address] Lymphocytes/100 WBC (Bld) 26.4 % Normal 19-41 [facility] Comment on above: Order Comment: 308.2 Performed By: #### L 506.1001, L500.2500, L100.0100 #### [facility] [address] [place], [address] MCH (RBC) [Entitic mass] 30.4 pg Normal 27.0-32.0 [facility] Comment on above: Order Comment: 308.2 Performed By: #### L 506.1001, L500.2500, L100.0100 #### [facility] [address] [place], [address] MCHC (RBC) [Mass/Vol] 32.3 g/dL Normal 32-36 [facility] Comment on above: Order Comment: 308.2 Performed By: #### L 506.1001, L500.2500, L100.0100 #### [facility] [address] [place], [address] MCV (RBC) [Entitic vol] 93.9 fL Normal 81-99 [facility] Comment on above: Order Comment: 308.2 Performed By: #### L 506.1001, L500.2500, L100.0100 #### [facility] [address] [place], [address] Monocytes/100 WBC (Bld) 9.0 % Normal 0-10 [facility] Comment on above: Order Comment: 308.2 Performed By: #### L 506.1001, L500.2500, L100.0100 #### [facility] [address] [place], [address] Neutrophils/100 WBC (Bld) 61.4 % Normal 47-70 [facility] Comment on above: Order Comment: 308.2 Performed By: #### L 506.1001, L500.2500, L100.0100 #### [facility] [address] [place], [address] Nucleated RBC (Bld) [#/Vol] 0 10*3/uL Normal 0-5 [facility] Comment on above: Order Comment: 308.2 Performed By: #### L 506.1001, L500.2500, L100.0100 #### [facility] [address] [place], [address] Platelet mean volume (Bld) [Entitic vol] 11.5 fL Normal 6.2-12.0 [facility] Comment on above: Order Comment: 308.2 Performed By: #### L 506.1001, L500.2500, L100.0100 #### [facility] [address] [place], [address] Platelets (Bld) [#/Vol] 236 10*3/uL Normal 150-450 [facility] Comment on above: Order Comment: 308.2 Performed By: #### L 506.1001, L500.2500, L100.0100 #### [facility] [address] [place], [address] RBC (Bld) [#/Vol] 4.28 10*6/uL Normal 4.2-5.4 [facility] Comment on above: Order Comment: 308.2 Performed By: #### L 506.1001, L500.2500, L100.0100 #### [facility] [address] [place], [address] RDW SD 46.0 fl High 35.1-43.9 [facility] Comment on above: Order Comment: 308.2 Performed By: #### L 506.1001, L500.2500, L100.0100 #### [facility] [address] [place], [address] WBC (Bld) [#/Vol] 5.3 10*3/uL Normal 4.4-11.0 [facility] Comment on above: Order Comment: 308.2 Performed By: #### L 506.1001, L500.2500, L100.0100 #### [facility] [address] [place], [address] Carbon dioxide, total [Moles /volume] in Central venous bloodOrdered By: Jacqueline Walsh on 11-08-2024 CO2 [Moles/Vol] 25.4 mmol/L 21.0-32.0 [facility] Chloride assayOrdered By: Warner Walsh on 11-08-2024 Chloride [Moles/Vol] 104 mmol/L 98-108 [facility] Eosinophil percentageOrdered By: Jacqueline Walsh on 11-08-2024 Eosinophils/100 WBC (Bld) 2.4 % 0-5 [facility] Erythrocyte distribution wid th ratioOrdered By: Jacqueline Walsh on 11-08-2024 Erythrocyte distribution width (RBC) [Ratio] 13.4 % 11.6-14.6 [facility] Erythrocyte distribution wid th standard deviationOrdered By: Jacqueline Walsh on 11-08-2024 Erythrocyte distribution width (RBC) [Ratio] 46.0 fl High 35.1-43.9 [facility] Glomerular filtration rate ( GFR) estimation/1.73 sq m using serum, plasma, or whole bOrdered By: Jacqueline Walsh on 11-08-2024 GFR/1.73 sq M.predicted among non-blacks MDRD (S/P/Bld) [Vol rate/Area] 68 mL/min/{1.73_m2} >60 [facility] Comment on above: mL/min/1.73m2 CKD-EP I Creatinine Equation (2020) Hematocrit Auto (Bld) [Volum e fraction]Ordered By: Jacqueline Walsh on 11-08-2024 Hematocrit (Bld) [Volume fraction] 40.2 % 37-47 [facility] Hemoglobin measurementOrdere d By: Jacqueline Walsh on 11-08-2024 Hemoglobin (Bld) [Mass/Vol] 13.0 g/dL 12.0-15.0 [facility] Immature granulocytes/100 WB C Auto (Bld)Ordered By: Jacqueline Walsh on 11-08-2024 Immature granulocytes/100 WBC (Bld) 0.200 % 0.0-0.9 [facility] Comment on above: IG% - Immature Granu locytes (promyelocytes, myelocytes and metamyelocytes) > 1% indicates that a LEFT SHIFT is Present. MCV (mean corpuscular volume ) determinationOrdered By: Jacqueline Walsh on 11-08-2024 MCV (RBC) [Entitic vol] 93.9 fL 81-99 [facility] Mean corpuscular hemoglobin (MCH) determinationOrdered By: Jacqueline Walsh 11-08-2024 MCH (RBC) [Entitic mass] 30.4 pg 27.0-32.0 [facility] Mean corpuscular hemoglobin concentration (MCHC) determinationOrdered By: Jacqueline Walsh on 11-08-2024 MCHC (RBC) [Mass/Vol] 32.3 g/dL 32-36 [facility] Mean platelet volume determi nationOrdered By: Jacqueline Walsh on 11-08-2024 Platelet mean volume (Bld) [Entitic vol] 11.5 fL 6.2-12.0 [facility] Monocyte percentageOrdered B y: Jacqueline Walsh on 11-08-2024 Monocytes/100 WBC (Bld) 9.0 % 0-10 [facility] Neutrophil percentageOrdered By: Jacqueline Walsh on 11-08-2024 Neutrophils/100 WBC (Bld) 61.4 % 47-70 [facility] Nucleated red blood cell per centageOrdered By: Jacqueline Walsh on 11-08-2024 Nucleated RBC/100 WBC (Bld) [Ratio] 0 % 0-5 [facility] Platelet countOrdered By: Warner Walsh on 11-08-2024 Platelets (Bld) [#/Vol] 236 10*3/uL 150-450 [facility] Potassium measurement (mass/ volume)Ordered By: Jacqueline Walsh on 11-08-2024 Potassium (Unsp spec) [Mass/Vol] 4.7 mmol/L 3.3-5.1 [facility] RBC Auto (Bld) [#/Vol]Ordere d By: Jacqueline Walsh on 11-08-2024 RBC (Bld) [#/Vol] 4.28 10*6/uL 4.2-5.4 [facility] Serum creatinine measurement (mass/volume)Ordered By: Jacqueline Walsh on 11-08-2024 Creatinine [Mass/Vol] 0.89 mg/dL 0.70-1.20 [facility] Serum glucose measurement (m ass/volume)Ordered By: Jacqueline Walsh on 11-08-2024 Glucose [Mass/Vol] 83 mg/dL 70-99 [facility] Serum or plasma calcium rex urement (mass/volume)Ordered By: Jacqueline Walsh on 11-08-2024 Calcium [Mass/Vol] 9.2 mg/dL 7.6-11.0 [facility] Serum or plasma urea nitroge n measurement (mass/volume)Ordered By: Jacqueline Walsh on 11-08-2024 Urea nitrogen [Mass/Vol] 18 mg/dL 4-19 [facility] Sodium levelOrdered By: Esperanza Walsh on 11-08-2024 Sodium [Moles/Vol] 139 mmol/L 133-145 [facility] Vitamin D,25 Hydroxyon 11-08 Vitamin D 25-OH 26.4 ng/mL Low 30-100 [facility] Comment on above: Order Comment: 308.2 Result Comment: Margy min D Status Deficiency: <20 ng/mL (50nmol/L) Insufficiency: 20-30 ng/mL (50-75 nmol/L) Sufficiency: 30-100 ng/mL (75-250 nmol/L) Toxicity: >100 ng/mL (>250 nmol/L) Performed By: #### L 506.1001, L500.2500, L100.0100 #### [facility] [place], [address] White blood cell (WBC) count Ordered By: Jacqueline Walsh on 11-08-2024 WBC (Bld) [#/Vol] 5.3 10*3/uL 4.4-11.0 [facility] Absolute lymphocyte countOrd ered By: Jacqueline Walsh on 10-19-2024 Lymphocytes Auto (Unsp spec) [#/Vol] 1.54 10*3/uL 0.83-4.51 [facility] Absolute neutrophil countOrd ered By: Jacqueline Walsh on 10-19-2024 Neutrophils (Bld) [#/Vol] 3.2 10*3/uL 2.0-7.7 [facility] Anion gap in Serum or Plasma Ordered By: Jacqueline Walsh on 10-19-2024 Anion gap [Moles/Vol] 10 mmol/L 5-15 [facility] Automated blood erythrocyte countOrdered By: Jacqueline Walsh on 10-19-2024 RBC (Bld) [#/Vol] 4.20 10*6/uL Normal 4.2-5.4 [facility] Comment on above: Order Comment: 308-2 Performed By: #### L 500.4050, L100.0100, L506.1001, L503.0106, L501.9520, L501.9985 #### [facility] [address] [place], [place], [id number] Automated blood hematocrit ( percentage)Ordered By: Jacqueline Walsh on 10-19-2024 Hematocrit (Bld) [Volume fraction] 39.9 % Normal 37-47 [facility] Comment on above: Order Comment: 308-2 Performed By: #### L 500.4050, L100.0100, L506.1001, L503.0106, L501.9520, L501.9985 #### [facility] [address] [place], [address] Automated lymphocyte count a s percentage of total leukocytesOrdered By: Jacqueline Walsh on 10-19-2024 Lymphocytes/100 WBC Auto (Unsp spec) 28.4 % 19-41 [facility] BUN/creatinine ratioOrdered By: Jacqueline Walsh on 10-19-2024 Urea nitrogen/Creatinine [Mass ratio] 19.6 mg/mg 10-20 [facility] Basophil percentageOrdered B y: Jacqueline Walsh on 10-19-2024 Basophils/100 WBC (Bld) 0.9 % Normal 0-1 [facility] Comment on above: Order Comment: 308-2 Performed By: #### L 500.4050, L100.0100, L506.1001, L503.0106, L501.9520, L501.9985 #### [facility] [address] [place], [address] Bilirubin, totalOrdered By: Jacqueline Walsh on 10-19-2024 Bilirubin [Mass/Vol] 0.35 mg/dL Normal 0.00-1.30 [facility] Comment on above: Order Comment: 153 Performed By: #### L 500.2500, L100.0500 #### [facility] [address] [place], [address] CBC W/Diff, Automatedon 05-2 -2024 Absolute Lymph 1.54 X10 3/uL Normal 0.83-4.51 [facility] Comment on above: Order Comment: 308-2 Performed By: #### L 500.4050, L100.0100, L506.1001, L503.0106, L501.9520, L501.9985 #### [facility] [address] [place], [address] Absolute Neut 3.2 X10 3/uL Normal 2.0-7.7 [facility] Comment on above: Order Comment: 308-2 Performed By: #### L 500.4050, L100.0100, L506.1001, L503.0106, L501.9520, L501.9985 #### [facility] [address] [place], [address] IG% 0.200 Normal 0.0-0.9 [facility] Comment on above: Order Comment: 308-2 Result Comment: IG% - Immature Granulocytes (promyelocytes, myelocytes and metamyelocytes) > 1% indicates that a LEFT SHIFT is Present. Performed By: #### L 500.4050, L100.0100, L506.1001, L503.0106, L501.9520, L501.9985 #### [facility] [address] [place], [address] Lymphocytes/100 WBC (Bld) 28.4 % Normal 19-41 [facility] Comment on above: Order Comment: 308-2 Performed By: #### L 500.4050, L100.0100, L506.1001, L503.0106, L501.9520, L501.9985 #### [facility] [address] [place], [address] Nucleated RBC (Bld) [#/Vol] 0 10*3/uL Normal 0-5 [facility] Comment on above: Order Comment: 308-2 Performed By: #### L 500.4050, L100.0100, L506.1001, L503.0106, L501.9520, L501.9985 #### [facility] [address] [place], [address] RDW SD 48.3 fl High 35.1-43.9 [facility] Comment on above: Order Comment: 308-2 Performed By: #### L 500.4050, L100.0100, L506.1001, L503.0106, L501.9520, L501.9985 #### [facility] [address] [place], [address] Carbon dioxide, total [Moles /volume] in Central venous bloodOrdered By: Jacqueline Walsh on 10-19-2024 CO2 [Moles/Vol] 26.2 mmol/L Normal 21.0-32.0 [facility] Comment on above: Order Comment: 153 Performed By: #### L 500.2500, L100.0500 #### [facility] [address] [place], [address] Chloride assayOrdered By: Warner Walsh on 10-19-2024 Chloride [Moles/Vol] 105 mmol/L Normal 98-108 [facility] Comment on above: Order Comment: 153 Performed By: #### L 500.2500, L100.0500 #### [facility] [address] [place], [address] Comprehensive Metabolic Prof ilon 10-19-2024 ALK PHOS 68 U/L Normal 35-104 [facility] Comment on above: Order Comment: 153 Performed By: #### L 500.2500, L100.0500 #### [facility] [address] [place], [address] BUN/CRE 19.6 RATIO Normal 10-20 [facility] Comment on above: Order Comment: 153 Performed By: #### L 500.2500, L100.0500 #### [facility] [address] [place], [address] GAP 10 Normal 5-15 [facility] Comment on above: Order Comment: 153 Performed By: #### L 500.2500, L100.0500 #### [facility] [address] [place], [address] Potassium [Moles/Vol] 4.4 mmol/L Normal 3.3-5.1 [facility] Comment on above: Order Comment: 153 Performed By: #### L 500.2500, L100.0500 #### [facility] [address] [place], [address] T PROT 7.0 g/dL Normal 5.9-8.4 [facility] Comment on above: Order Comment: 153 Performed By: #### L 500.2500, L100.0500 #### [facility] [address] [place], [address] Comprehensive Metabolic Prof ilOrdered By: Jacqueline Walsh on 10-19-2024 AST [Catalytic activity/Vol] 17 U/L Normal <=31 [facility] Comment on above: Order Comment: 153 Performed By: #### L 500.2500, L100.0500 #### [facility] [address] [place], [address] Eosinophil percentageOrdered By: Jacqueline Walsh on 10-19-2024 Eosinophils/100 WBC (Bld) 2.0 % Normal 0-5 [facility] Comment on above: Order Comment: 308-2 Performed By: #### L 500.4050, L100.0100, L506.1001, L503.0106, L501.9520, L501.9985 #### [facility] [address] [place], [place], [address] Erythrocyte distribution wid th ratioOrdered By: Jacqueline Walsh on 10-19-2024 Erythrocyte distribution width (RBC) [Ratio] 13.7 % Normal 11.6-14.6 [facility] Comment on above: Order Comment: 308-2 Performed By: #### L 500.4050, L100.0100, L506.1001, L503.0106, L501.9520, L501.9985 #### [facility] [address] [place], [place], [address] Erythrocyte distribution wid th standard deviationOrdered By: Jacqueline Walsh on 10-19-2024 Erythrocyte distribution width (RBC) [Ratio] 48.3 fl High 35.1-43.9 [facility] Glomerular filtration rate ( GFR) estimation/1.73 sq m using serum, plasma, or whole bOrdered By: Jacqueline Walsh on 10-19-2024 GFR/1.73 sq M.predicted among non-blacks MDRD (S/P/Bld) [Vol rate/Area] 66 mL/min/{1.73_m2} Normal >60 [facility] Comment on above: mL/min/1.73m2 CKD-EP I Creatinine Equation (2020) Order Comment: 153 Result Comment: mL/m in/1.73m2 CKD-EPI Creatinine Equation (2020) Performed By: #### L 500.2500, L100.0500 #### [facility] [address] [place], [place], [address] Hemoglobin A1c percentageOrd ered By: Jacqueline Walsh on 10-19-2024 HbA1c (Bld) [Mass fraction] 5.6 % Normal <=5.6 [facility] Comment on above: Normal < 5.7 % Predi abetic 5.7 - 6.4 % Diabetic >or= 6.5 % Please note range changes. Order Comment: 308-2 Result Comment: Norm al < 5.7 % Prediabetic 5.7 - 6.4 % Diabetic >or= 6.5 % Please note range changes. Performed By: #### L 500.4050, L100.0100, L506.1001, L503.0106, L501.9520, L501.9985 #### [facility] [address] [place], [place], [address] Hemoglobin measurementOrdere d By: Jacqueline Walsh on 10-19-2024 Hemoglobin (Bld) [Mass/Vol] 12.7 g/dL Normal 12.0-15.0 [facility] Comment on above: Order Comment: 308-2 Performed By: #### L 500.4050, L100.0100, L506.1001, L503.0106, L501.9520, L501.9985 #### [facility] [address] [place], [address] ([address] Immature granulocytes/100 WB C Auto (Bld)Ordered By: Jacqueline Walsh on 10-19-2024 Immature granulocytes/100 WBC (Bld) 0.200 % 0.0-0.9 [facility] Comment on above: IG% - Immature Granu locytes (promyelocytes, myelocytes and metamyelocytes) > 1% indicates that a LEFT SHIFT is Present. MCV (mean corpuscular volume ) determinationOrdered By: Jacqueline Walsh on 10-19-2024 MCV (RBC) [Entitic vol] 95.0 fL Normal 81-99 [facility] Comment on above: Order Comment: 308-2 Performed By: #### L 500.4050, L100.0100, L506.1001, L503.0106, L501.9520, L501.9985 #### [facility] [address] [place], [address] ([address] Mean corpuscular hemoglobin (MCH) determinationOrdered By: Jacqueline Walsh on 10-19-2024 MCH (RBC) [Entitic mass] 30.2 pg Normal 27.0-32.0 [facility] Comment on above: Order Comment: 308-2 Performed By: #### L 500.4050, L100.0100, L506.1001, L503.0106, L501.9520, L501.9985 #### [facility] [address] [place], [place], [address] Mean corpuscular hemoglobin concentration (MCHC) determinationOrdered By: Jacqueline Walsh on 10-19-2024 MCHC (RBC) [Mass/Vol] 31.8 g/dL Low 32-36 [facility] Comment on above: Order Comment: 308-2 Performed By: #### L 500.4050, L100.0100, L506.1001, L503.0106, L501.9520, L501.9985 #### [facility] [address] [place], [address] Mean platelet volume determi nationOrdered By: Jacqueline Walsh on 10-19-2024 Platelet mean volume (Bld) [Entitic vol] 11.7 fL Normal 6.2-12.0 [facility] Comment on above: Order Comment: 308-2 Performed By: #### L 500.4050, L100.0100, L506.1001, L503.0106, L501.9520, L501.9985 #### [facility] [address] [place], [address] Monocyte percentageOrdered B y: Jacqueline Walsh on 10-19-2024 Monocytes/100 WBC (Bld) 9.4 % Normal 0-10 [facility] Comment on above: Order Comment: 308-2 Performed By: #### L 500.4050, L100.0100, L506.1001, L503.0106, L501.9520, L501.9985 #### [facility] [address] [place], [address] Neutrophil percentageOrdered By: Jacqueline Walsh on 10-19-2024 Neutrophils/100 WBC (Bld) 59.1 % Normal 47-70 [facility] Comment on above: Order Comment: 308-2 Performed By: #### L 500.4050, L100.0100, L506.1001, L503.0106, L501.9520, L501.9985 #### [facility] [address] [place], [address] Nucleated red blood cell per centageOrdered By: Jacqueline Walsh on 10-19-2024 Nucleated RBC/100 WBC (Bld) [Ratio] 0 % 0-5 [facility] Platelet countOrdered By: Warner Walsh on 10-19-2024 Platelets (Bld) [#/Vol] 211 10*3/uL Normal 150-450 [facility] Comment on above: Order Comment: 308-2 Performed By: #### L 500.4050, L100.0100, L506.1001, L503.0106, L501.9520, L501.9985 #### [facility] [address] [place], [address] Potassium measurement (mass/ volume)Ordered By: Jacqueline Walsh on 10-19-2024 Potassium (Unsp spec) [Mass/Vol] 4.4 mmol/L 3.3-5.1 [facility] Serum creatinine measurement (mass/volume)Ordered By: Jacqueline Walsh on 10-19-2024 Creatinine [Mass/Vol] 0.91 mg/dL Normal 0.70-1.20 [facility] Comment on above: Order Comment: 153 Performed By: #### L 500.2500, L100.0500 #### [facility] [address] [place], [address] Serum globulin measurementOr dered By: Jacqueline Walsh on 10-19-2024 Globulin (S) [Mass/Vol] 2.9 g/dL Normal 2.2-4.2 [facility] Comment on above: Order Comment: 153 Performed By: #### L 500.2500, L100.0500 #### [facility] [address] [place], [address] Serum glucose measurement (m ass/volume)Ordered By: Jacqueline Walsh on 10-19-2024 Glucose [Mass/Vol] 85 mg/dL Normal 70-99 [facility] Comment on above: Order Comment: 153 Performed By: #### L 500.2500, L100.0500 #### [facility] [address] [place], [address] Serum or plasma alanine hall otransferase (ALT) measurementOrdered By: Jacqueline Walsh on 10-19-2024 ALT [Catalytic activity/Vol] U/L Normal <=34 [facility] Comment on above: Order Comment: 153 Performed By: #### L 500.2500, L100.0500 #### [facility] [address] [place], [address] Serum or plasma albumin rex urement (mass/volume)Ordered By: Jacqueline Walsh on 10-19-2024 Albumin [Mass/Vol] 4.2 g/dL Normal 3.4-4.8 [facility] Comment on above: Order Comment: 153 Performed By: #### L 500.2500, L100.0500 #### [facility] [address] [place], [address] Serum or plasma albumin/glob ulin mass ratioOrdered By: Jacqueline Walsh on 10-19-2024 Albumin/Globulin [Mass ratio] 1.4 {ratio} Normal 0.9-2.4 [facility] Comment on above: Order Comment: 153 Performed By: #### L 500.2500, L100.0500 #### [facility] [address] [place], [address] Serum or plasma alkaline carisa sphatase measurementOrdered By: Jacqueline Walsh on 10-19-2024 ALP [Catalytic activity/Vol] 68 U/L 35-104 [facility] Serum or plasma calcium rex urement (mass/volume)Ordered By: Jacqueline Walsh on 10-19-2024 Calcium [Mass/Vol] 9.1 mg/dL Normal 7.6-11.0 [facility] Comment on above: Order Comment: 153 Performed By: #### L 500.2500, L100.0500 #### [facility] [address] [place], [address] Serum or plasma urea nitroge n measurement (mass/volume)Ordered By: Jacqueline Walsh on 10-19-2024 Urea nitrogen [Mass/Vol] 18 mg/dL Normal 4-19 [facility] Comment on above: Order Comment: 153 Performed By: #### L 500.2500, L100.0500 #### [facility] [address] [place], [address] Sodium levelOrdered By: Esperanza Walsh on 10-19-2024 Sodium [Moles/Vol] 141 mmol/L Normal 133-145 [facility] Comment on above: Order Comment: 153 Performed By: #### L 500.2500, L100.0500 #### [facility] [address] [place], [address] TSH DL <= 0.005 mIU/L QnOrde red By: Jacqueline Walsh on 10-19-2024 TSH Qn 2.790 uIU/mL 0.300-4.200 [facility] Thyroid Stim Hormone (TSH)on 10-19-2024 TSH 2.790 uIU/mL Normal 0.300-4.200 [facility] Comment on above: Order Comment: 308-2 Performed By: #### L 500.4050, L100.0100, L506.1001, L503.0106, L501.9520, L501.9985 #### [facility] [address] [place], [address] Total proteinOrdered By: Herber Walsh on 10-19-2024 Protein [Mass/Vol] 7.0 g/dL 5.9-8.4 [facility] Vitamin B12 ser/plasOrdered By: Jacqueline Walsh on 10-19-2024 Cobalamin (Vitamin B12) [Mass/Vol] 313 pg/mL Normal 180-914 [facility] Comment on above: Order Comment: 308-2 Performed By: #### L 500.4050, L100.0100, L506.1001, L503.0106, L501.9520, L501.9985 #### [facility] [address] [facility] [place], [place], [address] Vitamin D,25 Hydroxyon 10-19 Vitamin D 25-OH 30.3 ng/mL Normal 30-100 [facility] Comment on above: Order Comment: 308-2 Result Comment: Margy min D Status Deficiency: <20 ng/mL (50nmol/L) Insufficiency: 20-30 ng/mL (50-75 nmol/L) Sufficiency: 30-100 ng/mL (75-250 nmol/L) Toxicity: >100 ng/mL (>250 nmol/L) Performed By: #### L 500.4050, L100.0100, L506.1001, L503.0106, L501.9520, L501.9985 #### [facility] [address] [place], [place], [address] White blood cell (WBC) count Ordered By: Jacqueline Walsh on 10-19-2024 WBC (Bld) [#/Vol] 5.4 10*3/uL Normal 4.4-11.0 [facility] Comment on above: Order Comment: 308-2 Performed By: #### L 500.4050, L100.0100, L506.1001, L503.0106, L501.9520, L501.9985 #### [facility] [address] [place], [place], [address] MRI Spine Lumbar w/o Contras ton 12-07-2018 MRI Spine Lumbar w/o Contrast Patient Name: DANAY GARCIA MRI Exam Date/Time 12/07/2018 08:16:25 EDT Exam MRI Spine Lumbar w/o Contrast Ordering Physician MAE DICKINSON Accession Number [id number] CPT4 Codes 84242 () Reason For Exam lumbar stenosis Report [...] Transcribed Date and Time: 12/07/2018 8:50 Normal [facility] Encounters Encounter Date Encounter Type Care Provider Facility Start: 03-25-2025 Encounter for genera l adult medical examination without abnormal findings Jacqueline PEOPLES [facility] Start: 02-08-[address] Jacqueline Walsh MD -[facility] Work Phone: Start: 02-08-2025 End: 02-08-2025 ambulatory Jacqueline PEOPLES Facility:[facility] Start: 12-22-[address] Jacqueline Walsh MD -[facility] Work Phone: Start: 12-22-2024 End: 12-22-2024 ambulatory Jacqueline PEOPLES Facility:[facility] Start: 11-08-2024 End: 11-08-[address] Jacqueline Walsh MD -[facility] Start: 11-08-2024 End: 11-08-[address] Jacqueline Walsh MD -[facility] Start: 11-08-2024 End: 11-08-2024 ambulatory Jacqueline PEOPLES Facility:[facility] Start: 10-19-2024 End: 10-19-[address] Jacqueline Walsh MD [facility] Work Phone: Start: 10-19-2024 End: 10-19-[address] Jacqueline Walsh MD -[facility] Start: 10-19-2024 End: 10-19-2024 ambulatory Jacquelinerandall PEOPLES Facility:[facility] Procedures Date Procedure Procedure Detail Performing Clinician Start: 02-08-2025 Vitamin D, 25-hydrox y measurement Dr. Jacqueline Walsh MD Comment on above: Vitamin D StatusDefi ciency: <20 ng/mL (50nmol/L)Insufficiency: 20-30 ng/mL (50-75 nmol/L)Sufficiency: 30-100 ng/mL (75-250 nmol/L)Toxicity: >100 ng/mL (>250 nmol/L) Start: 11-08-2024 Vitamin D, 25-hydrox y measurement Dr. Jacqueline Walsh MD Comment on above: Vitamin D StatusDefi ciency: <20 ng/mL (50nmol/L)Insufficiency: 20-30 ng/mL (50-75 nmol/L)Sufficiency: 30-100 ng/mL (75-250 nmol/L)Toxicity: >100 ng/mL (>250 nmol/L) Start: 10-19-2024 Vitamin D, 25-hydrox y measurement Dr. Jacqueline Walsh MD Comment on above: Vitamin D StatusDefi ciency: <20 ng/mL (50nmol/L)Insufficiency: 20-30 ng/mL (50-75 nmol/L)Sufficiency: 30-100 ng/mL (75-250 nmol/L)Toxicity: >100 ng/mL (>250 nmol/L) Payers Date Payer Category Payer Medicaid [id number] 2024 Medicare [id number] 2024 Self-pay Unknown [id number] [id number] [id number] Unknown [id number] [id number] Unknown [id number] [id number] [id number] Unknown [id number] [id number] [id number] Social History Date Type Detail Facility [facility] Work Phone: Start: 1950 Sex Assigned At Female [facility] Sex Female [facility] Evaluation note Note Date & Type Note Facility Evaluation note No assessment information availa ble [facility] Work Phone: Reason for referral (narrative) Note Date & Type Note Facility Reason for referral (narrative) No reason for referral information available [facility] Work Phone: Summary Purpose Family History No Family History Records FoundNo Family History Records Found Advance Directives No Advanced Directives Records FoundNo Advanced Directives Records Found Chief Complaint and Reason for Visit Chief Complaint Admit Date LABWORK October 19, 2024 5:00a m Chief Complaint Admit Date [facility] WORK November 08, 2024 5: 00am LABWORK December 22, 2024 5:00 am [facility] February 08 5:00am Additional Source Comments INFORMATION SOURCE (unrecogn ized section and content) DATE CREATED AUTHOR 12/15/2018 [employer] DATE CREATED AUTHOR AUTHOR'S ORGANIZ ATION 03/27/2025 [facility] Care Teams (unrecognized sec tion and content) Team Status: Inactive Member Role Status Dates Dr. Jacqueline PEOPLES MD Attending Provider Active Start: October 19, 2024 End: October 19, 2024 Team Status: Inactive Member Role/Relationship Status Dates Dr. Jacqueline PEOPLES MD Attending physician Active Start: November 08, 2024 End: November 08, 2024 Team Status: Active Member Role/Relationship Status Dates Dr. Jacqueline PEOPLES MD Attending physician Active Start: December 22, 2024 Team Status: Active Member Role/Relationship Status Dates Dr. Jacqueline PEOPLES MD Attending physician Active Start: February 08, 2025 Goals (unrecognized section and content) Goals may be documented in a n alternate sectionGoals may be documented in an alternate section FOR RECORDS PERTAINING TO PATIENTS [...] BE BASED ON THE PRIMARY CLINICAL RECORDS. [email or web address] [facility] provides no warranty or guarantee of the accuracy or completeness of information in this document.
[2025-05-02 08:51] LABS: AST(SGOT) 19 U/L (<=31); Alanine Aminotransfer ALT/SGPT 8 U/L (<=34); Albumin, Serum 4.3 g/dL (3.4-4.8); Alkaline Phosphatase 64 U/L (35-104); Anion Gap 9 (5-15); BUN 10 mg/dL (4-19); BUN/Creat Ratio 9.8 RATIO (10-20); Calcium,Total 9.4 mg/dL (7.6-11.0); Carbon Dioxide 28.8 mmol/L (21.0-32.0); Chloride 102 mmol/L (98-108); Cholesterol 196 mg/dL (<=200); Globulin 3.0 g/dL (2.2-4.2); Glucose 86 mg/dL (70-99); Low Density Lipoprotein Calc. 129 mg/dL; Potassium 4.1 mmol/L (3.3-5.1); Triglycerides 102 mg/dL; Very Low Density Lipoprotein 20 mg/dL (5-40); Vitamin D,25 Hydroxy 38.2 ng/mL (30-100); cholesterol:hdl ratio screen 4.01
[2025-05-02 11:17] LABS: Hematocrit 45.1 % (37-47); Hemoglobin 14.5 g/dL (12.0-15.0); Mean Corp Hgb Conc 32.2 g/dL (32-36); Mean Corpuscular Volume 95.6 fL (81-99); Mean Platelet Vol. 12.0 fl (6.2-12.0); Platelet Count 212 K/mm3 (150-450); RBC Distribution Width CV 13.2 % (11.6-14.6); RBC Distribution Width SD 46.7 fl (35.1-43.9); Red Blood Count 4.72 M/mm3 (4.2-5.4); White Blood Count 4.8 K/mm3 (4.4-11.0)
== END ==
LOC: OLS.SWAL 04:00
PROVIDERS: Referring Provider Internal Medicine; Visit Provider Internal Medicine
DX: E03.9 Hypothyroidism, unspecified (principal); G20.B2 Parkinson's disease with dyskinesia, with fluctuations; F33.9 Major depressive disorder, recurrent, unspecified
CPT/HCPCS: 36415; 80053; 80061; 82306; 83036; 85027